=== PATIENT | female | born 1950 | race Caucasian/White ===

== ENCOUNTER → 2019-07-13 | Day surgery (SDC) | payer MEDICARE, OTHER ==
[~2019-07-13] MED LIST: Lactated Ringers 1,000 ML IV SCH; Propofol 200 MG/20 ML SDV IV ONE
[2019-07-13 12:48] VITALS: BP 141/63; PULSE 77
--- NOTE | 2019-07-13 14:49 | OR ---
DATE OF OPERATION: 07/13/2019 PREOPERATIVE DIAGNOSIS: IRON-DEFICIENCY ANEMIA. POSTOPERATIVE DIAGNOSIS: IRON-DEFICIENCY ANEMIA. SURGEON: Shmuel Capellan MD PROCEDURE: 1. EGD WITH BIOPSIES X3, ALYSSA. 2. COLONOSCOPY WITH BIOPSY X3. ANESTHESIA: MAC. COMPLICATIONS: None. SPECIMEN: 1. Duodenal bulb biopsy x1. 2. Antral biopsy x2. 3. Antral ALYSSA. 4. Right lower quadrant anastomosis biopsy x3. FINDINGS: 1. Full-length EGD. 2. Minimal antral gastritis, duodenitis, likely chronic and mild. 3. Small hiatal hernia without esophagitis. 4. Full-length colonoscopy. 5. Marked stricturing and inflammation with active bleeding at the anastomosis site, the patient's right lower quadrant. RECOMMENDATIONS: The patient will require a consultation with GI and/or Surgery pending path report. She has some narrowing, stricturing, and inflammation down where she has looks like at least 1 anastomosis in the beginning of her colon from her prior bowel surgeries. I could find no obvious mass, although there was some thickening and then certainly active bleeding. This could represent inflammation from her Crohn's or possibly even malignancy. INDICATIONS: The patient is from [place]. She has a history of Crohn disease and is treated for breast cancer. She has been found recently to be iron deficient. I have no documentation of heme-positive stool. Nevertheless, she was sent for upper and lower endoscopy. DESCRIPTION OF PROCEDURE: The patient was prepped and draped, placed in the left lateral decubitus position. A lubricated Olympus gastroscope was inserted over a bit, advanced to cricopharyngeus area, and easily intubated in the esophagus. The esophageal lining was benign in its entire course. The Z-line was crisp and sharp around 38.5 cm. There was a very small hiatal hernia present. No active reflux. No distal esophagitis, stricturing, ulceration, or Hawley's changes. The scope was advanced into the stomach, through the pylorus, and into the 2nd portion of the duodenum. This and the duodenal bulb were essentially benign, may be a small amount of chronic inflammation of the duodenal bulb. We did a self pay representative biopsy with no signs of any active Crohn's in this area. The scope was brought back into the stomach and retroflexed. The upper fundus and cardia were unremarkable. Upon straightening, the rest of the fundus was benign. In the antrum, there was some chronic-appearing gastritis, albeit very mild. We did do 2 self pay representative biopsies and a CLOtest. There were no other masses or lesions seen. Air was suctioned from the stomach and the scope was removed without complication. A lubricated Olympus colonoscope was then inserted. The patient is very small and thin and a very challenging scope. We were able to safely and easily get to her splenic flexure, but it was very difficult to get through there. It was just such a tight turn. We had to put her on her back, and we were finally able to safely traverse this area and easily then get down to her right lower quadrant. The patient appears to have stricturing there, unsure if this is an anastomotic site or an apple core-type lesion. There was no real mass effect to it, but it was inflamed and bleeding and obviously the site of her blood loss. The cecal pouch has an anastomosis to it. I could see no evidence of mass in there. We were able to get the scope into there and irrigate and suction. We did do 3 biopsies just prior to the cecal pouch region of this strictured inflamed lesion, possibly representing some active Crohn's versus a potential malignancy. The rest of the ascending and transverse colon appeared benign. We had spent much time going through the splenic flexure on our way out. It was very tight with marked redundancy there and I thought there might possibly be a small polyp on my way out. I could not get back into this area which was very difficult to traverse and could not open. This certainly could represent a little suction delphine, but the polyp could not be absolutely ruled out here. The rest of the left colon including the descending colon, sigmoid and rectosigmoid areas were completely benign. The rectal vault was unremarkable. Retroflexion was not possible due to the shallowness and depth of her vault itself, but upon direct withdrawal, no gross-appearing lesions were seen. Air was suctioned as best as possible and the scope was removed without complication. HERBERTH/YULIA /[id number] CC: Nina Nieto MD
== END ==
LOC: CC.SDS 10:15
PROVIDERS: ATTEND Family Medicine
DX: K91.89 Other postprocedural complications and disorders of digestive system (principal); K44.9 Diaphragmatic hernia without obstruction or gangrene; K29.81 Duodenitis with bleeding; K29.51 Unspecified chronic gastritis with bleeding; K63.3 Ulcer of intestine; I10 Essential (primary) hypertension; G43.909 Migraine, unspecified, not intractable, without status migrainosus; M81.0 Age-related osteoporosis without current pathological fracture; Z88.5 Allergy status to narcotic agent; Z88.8 Allergy status to other drugs, medicaments and biological substances; Z88.2 Allergy status to sulfonamides; Z88.0 Allergy status to penicillin
CPT/HCPCS: 43239; 45380; 87081; J2704; J7120